=== PATIENT | male | born 1960 | race Caucasian/White ===

== ENCOUNTER 2019-06-02 08:21 | Emergency (ER) | payer OTHER ==
[~2019-06-02] VITALS: Ht 180.3 cm; Wt 79.4 kg
--- NOTE | 2019-06-02 08:30 | NUR ---
Patient to ER bed 8 to gown for evaluation. Side rails up. Report given to William RUSSO
[2019-06-02 08:32] VITALS: BP_SYST 144
--- NOTE | 2019-06-02 08:40 | NUR ---
flu swab collected and sent to the lab
--- NOTE | 2019-06-02 08:40 | NUR ---
Pt came to ER for N/V and cough. Pt not currently experiencing N/V and is resting in bed comfortably on color television console monitor VSS.
[2019-06-02] MEDS ORDERED: NACL 0.9% 1,000 ML IV ONE ×2 (08:45→09:45)
[2019-06-02] MEDS ORDERED: IPRATROPIUM/ALBUTEROL SULFATE 3 ML AMPUL.NEB (DUONEB) INH ONE (08:45)
[2019-06-02 08:48] LABS: HEMOGLOBIN 13.6 g/dL (14.0-18.0); MONOCYTES # (AUTO) 0.6 K/uL (0.0-1.0); PLATELET COUNT (AUTO) 101 K/uL (130-430)
--- NOTE | 2019-06-02 08:50 | NUR ---
EVELIA Colon at bedside examining patient.
[2019-06-02 08:53] LABS: BASOPHILS # (AUTO) 0.1 K/uL (0.0-0.2); BASOPHILS % (AUTO) 0.6 % (0.0-2.0); HEMATOCRIT 40.1 % (36-54); LYMPHOCYTES # (AUTO) 0.7 K/uL (1.0-5.5); LYMPHOCYTES % (AUTO) 7.4 % (20.5-51.5); MEAN CORPUSCULAR HEMOGLOBIN 31 pg (27-31); MEAN CORPUSCULAR HGB CONC 34 % (32-36); MEAN CORPUSCULAR VOLUME 92 fL (79.0-98.0); MONOCYTES % (AUTO) 6.3 % (1.7-9.3); NEUTROPHILS # (AUTO) 8.1 K/uL (1.8-7.7); NEUTROPHILS % (AUTO) 85.7 % (40.0-70.0); RED BLOOD CELL COUNT(AUTO) 4.35 MIL/uL (4.2-6.2); WHITE BLOOD COUNT (AUTO) 9.4 K/uL (4.8-10.8)
--- NOTE | 2019-06-02 09:00 | NUR ---
20 gauge angiocath placed to R AC. Use of asceptic technique. Opsite placed over site. Blood return noted. Blood for lab drawn from site. Flushed with 10 cc of normal saline. No evidence of infiltration noted. Patient tolerated well.
[2019-06-02 09:09] LABS: CALCIUM 8.9 mg/dL (8.4-11.0); CREATININE 2.55 mg/dL (0.55-1.30); POTASSIUM 4.2 mmol/L (3.5-5.1)
--- NOTE | 2019-06-02 09:10 | NUR ---
Patient transported to radiology via gurney, accompanied by sujatha.
[2019-06-02 09:14] LABS: ALBUMIN 2.5 g/dL (3.4-4.8); TOTAL BILIRUBIN 1.6 mg/dL (0.0-1.0)
--- NOTE | 2019-06-02 09:18 | NUR ---
Pt returned from radiology via [facility] on monitor car operator
[2019-06-02] MEDS ORDERED: INSULIN REGULAR, HUMAN 10 UNITS/0.1 ML INJ IVP ONE (09:30)
--- NOTE | 2019-06-02 09:45 | NUR ---
Administered Insulin 8 units IVP, Glucose 393. Pt tolerated well, will monitor
[2019-06-02] MEDS ORDERED: OSELTAMIVIR PHOSPHATE 75 MG CAPSULE PO ONE (10:00)
[2019-06-02 10:40] VITALS: BP_SYST 141
--- NOTE | 2019-06-02 10:40 | NUR ---
Patient given written and verbal discharge instructions and verbalizes understanding. ER MD discussed with patient the results and treatment provided. Patient in stable condition. ID arm band removed. IV catheter removed intact and dressing applied, no active bleeding. Rx of Tamiflu given. Patient educated on pain management and to follow up with PMD. Pain Scale 0. Opportunity for questions provided and answered. Medication side effect fact sheet provided.
== END 2019-06-02 08:50 | disposition home or self-care (01) ==
LOC: SED 08:21
DX: J10.1 Influenza due to other identified influenza virus with other respiratory manifestations (principal); E87.1 Hypo-osmolality and hyponatremia; R73.9 Hyperglycemia, unspecified; N18.9 Chronic kidney disease, unspecified; R11.10 Vomiting, unspecified; Z88.5 Allergy status to narcotic agent
CPT/HCPCS: 36415; 71046; 80053; 82962; 85025; 86710; 96361; 96374; 99284; G9035; J1815; J7030; J7620

== ENCOUNTER 2019-08-18 16:45 | Emergency (ER) | payer OTHER ==
[~2019-08-18] VITALS: Ht 180.3 cm; Wt 83.9 kg
[2019-08-18 16:45] VITALS: BP_SYST 138
[2019-08-18] MEDS ORDERED: NS 500 ML IV ONE (18:15)
[2019-08-18 18:38] LABS: BASOPHILS % (AUTO) 0.8 % (0.0-2.0); EOSINOPHILS # (AUTO) 0.1 K/uL (0.0-0.4); EOSINOPHILS % (AUTO) 1.7 % (0.0-4.0); HEMATOCRIT 37.4 % (36-54); HEMOGLOBIN 12.6 g/dL (14.0-18.0); LYMPHOCYTES # (AUTO) 0.2 K/uL (1.0-5.5); LYMPHOCYTES % (AUTO) 4.2 % (20.5-51.5); MEAN CORPUSCULAR HEMOGLOBIN 31 pg (27-31); MEAN CORPUSCULAR HGB CONC 34 % (32-36); MEAN CORPUSCULAR VOLUME 93 fL (79.0-98.0); MONOCYTES # (AUTO) 0.3 K/uL (0.0-1.0); MONOCYTES % (AUTO) 6.2 % (1.7-9.3); NEUTROPHILS # (AUTO) 4.5 K/uL (1.8-7.7); NEUTROPHILS % (AUTO) 87.1 % (40.0-70.0); PLATELET COUNT (AUTO) 103 K/uL (130-430); RED CELL DISTRIBUTION WIDTH 14.9 % (9.0-15.0); WHITE BLOOD COUNT (AUTO) 5.2 K/uL (4.8-10.8)
[2019-08-18 18:55] LABS: CALCIUM 8.7 mg/dL (8.4-11.0); CREATININE 2.45 mg/dL (0.55-1.30); POTASSIUM 3.7 mmol/L (3.5-5.1)
[2019-08-18 18:56] LABS: PROTHROMBIN TIME 10.4 SECS (9.5-12.5)
[2019-08-18 19:00] LABS: ALBUMIN 2.6 g/dL (3.4-4.8); TOTAL BILIRUBIN 1.3 mg/dL (0.0-1.0)
[2019-08-18 20:57] VITALS: BP_SYST 147
== END 2019-08-18 20:57 | disposition home or self-care (01) ==
LOC: SED 16:45
DX: I12.9 Hypertensive chronic kidney disease with stage 1 through stage 4 chronic kidney disease, or unspecified chronic kidney disease (principal); E11.22 Type 2 diabetes mellitus with diabetic chronic kidney disease; N18.9 Chronic kidney disease, unspecified; C22.0 Liver cell carcinoma; J02.9 Acute pharyngitis, unspecified; R11.0 Nausea; Z88.6 Allergy status to analgesic agent
CPT/HCPCS: 36415; 70490; 71045; 80053; 83605; 84484; 85025; 85610; 85730; 86308; 87040; 93005; 99285; J7030

== ENCOUNTER 2019-10-04 12:00 | Emergency (ER) | payer OTHER ==
[~2019-10-04] VITALS: Ht 180.3 cm; Wt 76.7 kg
--- NOTE | 2019-10-04 12:00 | NUR ---
PATIENT TO ER #2 WITH MARKET INVESTIGATOR, SAO2, ABP
--- NOTE | 2019-10-04 12:10 | NUR ---
pt arrives from w/ c/o feeling weak. Pt had liver resection sx on September 12. Pt is awake and alert. property assessment monitor placed. Will continue to monitor
[2019-10-04 12:27] VITALS: BP_SYST 113
--- NOTE | 2019-10-04 12:39 | NUR ---
ER at bedside examining patient.
[2019-10-04] MEDS ORDERED: GLIP10TA21 PO (12:42)
[2019-10-04] MEDS ORDERED: LOVA20TA PO (12:42)
[2019-10-04] MEDS ORDERED: INSU100V SUBQ (12:42)
[2019-10-04] MEDS ORDERED: PROP10TA10 PO (12:42)
[2019-10-04] MEDS ORDERED: AMLO5TAB4 PO (12:42)
[2019-10-04] MEDS ORDERED: NACL 0.9% 1,000 ML IV ONE (12:43)
--- NOTE | 2019-10-04 12:48 | NUR ---
# 20 gauge angiocath placed to RAC. Use of asceptic technique. Opsite placed over site. Blood return noted. Blood for lab drawn from site. Flushed with 10 cc of normal saline. No evidence of infiltration noted. Patient tolerated well.
--- NOTE | 2019-10-04 13:04 | NUR ---
Will of care received, pt A&Ox4, pt presents to ER for generalized weakness, pt states he had liver resection recently and feels weak, no N/V noted, temp 99.6, pt follows commands, cap refill <3, respirations even and unlabored.
[2019-10-04 13:23] LABS: BASOPHILS % (AUTO) 0.2 % (0.0-2.0); EOSINOPHILS # (AUTO) 0.2 K/uL (0.0-0.4); EOSINOPHILS % (AUTO) 1.5 % (0.0-4.0); HEMATOCRIT 31.7 % (36-54); HEMOGLOBIN 10.5 g/dL (14.0-18.0); LYMPHOCYTES # (AUTO) 0.2 K/uL (1.0-5.5); LYMPHOCYTES % (AUTO) 1.2 % (20.5-51.5); MEAN CORPUSCULAR HEMOGLOBIN 31 pg (27-31); MEAN CORPUSCULAR HGB CONC 33 % (32-36); MEAN CORPUSCULAR VOLUME 92 fL (79.0-98.0); MONOCYTES # (AUTO) 0.5 K/uL (0.0-1.0); MONOCYTES % (AUTO) 4.1 % (1.7-9.3); NEUTROPHILS # (AUTO) 11.9 K/uL (1.8-7.7); PLATELET COUNT (AUTO) 139 K/uL (130-430); RED BLOOD CELL COUNT(AUTO) 3.43 MIL/uL (4.2-6.2); RED CELL DISTRIBUTION WIDTH 14.7 % (9.0-15.0); WHITE BLOOD COUNT (AUTO) 12.8 K/uL (4.8-10.8)
[2019-10-04 13:39] LABS: ANION GAP 16 (5-15); CHLORIDE 103 mmol/L (98-107); CREATININE 3.49 mg/dL (0.55-1.30); GLUCOSE 165 mg/dL (70-99); POTASSIUM 3.3 mmol/L (3.5-5.1); SODIUM SERUM 136 mmol/L (136-145); UREA NITROGEN, BLOOD 56 mg/dL (8-21)
[2019-10-04 13:47] LABS: ALANINE AMINOTRANSFERASE 39 U/L (12-78); ASPARTATE AMINOTRANSFERASE 50 U/L (10-37); GFR AFRICAN AMERICAN 23 mL/min (>90); LIPASE 115 U/L (73-393); TOTAL BILIRUBIN 1.8 mg/dL (0.0-1.0)
--- NOTE | 2019-10-04 14:40 | NUR ---
pt removed is IV. Inserted IV 22g to the LAC. Patent and infusing well
[2019-10-04 14:45] VITALS: BP_SYST 120
== END 2019-10-04 14:47 | disposition home or self-care (01) ==
LOC: SED 12:00
DX: N17.9 Acute kidney failure, unspecified (principal); E86.0 Dehydration; I10 Essential (primary) hypertension; E11.29 Type 2 diabetes mellitus with other diabetic kidney complication; Z79.899 Other long term (current) drug therapy; Z79.4 Long term (current) use of insulin; Z90.49 Acquired absence of other specified parts of digestive tract; Z88.6 Allergy status to analgesic agent
CPT/HCPCS: 36415; 71045; 80053; 83690; 84484; 85025; 96360; 99284; J7030

== ENCOUNTER 2019-10-07 14:30 | Inpatient (IN) | payer OTHER, SELFPAY ==
[~2019-10-07] VITALS: Ht 170.2 cm; Wt 85.7 kg
--- NOTE | 2019-10-07 00:30 | NUR ---
Dr Seay at patient bedside. Addendum: 10/08/19 at 0835 by Sailaja Barfield RN *brianda dumont
[~2019-10-07 14:30] MED LIST: AMLO5TAB4 PO; GLIP10TA21 PO; INSU100V SUBQ; LOVA20TA PO; PROP10TA10 PO
[2019-10-07 14:35] VITALS: BP_SYST 104
--- NOTE | 2019-10-07 14:35 | NUR ---
Placed in room 3 . Placed on manager cardiac, blood pressure machine and pulse oximeter. To gown for exam. Side rails up. Report given to KARAN Rene.
--- NOTE | 2019-10-07 14:36 | NUR ---
Patient presented to ER C/O SOB. Patient A&Ox4, arrived to ER via wheelchair, patient pale and cold, temp 96.0, denies pain, denies N/V/D, large abdominal incision well healed with cathy in place & dry,. Patient states he had surgery at [facility] 09/13/2019. 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
[2019-10-07] MEDS ORDERED: NACL 0.9% 1,000 ML IV ONE ×2 (14:42→20:30)
[2019-10-07] MEDS ORDERED: MIDO10TA PO (15:10)
--- NOTE | 2019-10-07 15:17 | NUR ---
Patient taken to CT scan via gurney. Escorted by Lesley solares. Patient is transported on portable oxygen, IVF. Patient calm and cooperative, weakness. Will continue to follow up upon return.
[2019-10-07 15:18] LABS: HEMATOCRIT 33.2 % (36-54); HEMOGLOBIN 10.8 g/dL (14.0-18.0); MEAN CORPUSCULAR HEMOGLOBIN 30 pg (27-31); MEAN CORPUSCULAR HGB CONC 33 % (32-36); MEAN CORPUSCULAR VOLUME 93 fL (79.0-98.0); PLATELET COUNT (AUTO) 130 K/uL (130-430); RED BLOOD CELL COUNT(AUTO) 3.57 MIL/uL (4.2-6.2); WHITE BLOOD COUNT (AUTO) 13.6 K/uL (4.8-10.8)
[2019-10-07 15:29] LABS: INR 1.9 (0.80-1.20); PROTHROMBIN TIME 19.2 SECS (9.5-12.5)
[2019-10-07 15:32] LABS: ALBUMIN 1.6 g/dL (3.4-4.8); CALCIUM 7.7 mg/dL (8.4-11.0); CREATININE 5.48 mg/dL (0.55-1.30); POTASSIUM 3.8 mmol/L (3.5-5.1); TOTAL BILIRUBIN 2.9 mg/dL (0.0-1.0)
--- NOTE | 2019-10-07 15:35 | NUR ---
Rectal temp 93.5, made DR. CROWDER AWARE. MORE WARM BLANKET REPLACED ON PATIENT.
[2019-10-07 15:42] LABS: BAND % (MANUAL) 10 % (0-6); BASOPHILS % (MANUAL) 0 % (0-2); EOSINOPHILS % (MANUAL) 2 % (0-7); LYMPHOCYTES % (MANUAL) 1 % (20-46); MONOCYTES % (MANUAL) 2 % (0-11)
[2019-10-07] MEDS ORDERED: DEXTROSE 50% JECT 50 ML DISP.SYRIN IVP ONE (15:45)
[2019-10-07] MEDS ORDERED: DEXTROSE 50% JECT 50 ML DISP.SYRIN ONE (15:58)
[2019-10-07 16:09] LABS: CKMB RELATIVE INDEX 4.8 (0.0-2.9); CREATINE KINASE MB 19.8 ng/mL (0-3.6)
--- NOTE | 2019-10-07 16:10 | NUR ---
Tempature re-check 94.8, ppatient A&Ox4, verbal responses, denies pain.
--- NOTE | 2019-10-07 16:10 | NUR ---
ACCUCHECK RE-CHECK 101. MADE DR. CROWDER AWARE.
--- NOTE | 2019-10-07 17:00 | NUR ---
follow-up glucose 83, patient A&Ox4.
[2019-10-07 17:59] LABS: BILIRUBIN,URINE NEGATIVE (NEGATIVE); BLOOD, URINE NEGATIVE (NEGATIVE); CLARITY/URINE CLEAR (CLEAR); COLOR,URINE YELLOW (YELLOW); GLUCOSE,URINE NEGATIVE (NEGATIVE); KETONES,URINE NEGATIVE (NEGATIVE); LEUKOCYTE ESTERASE ,URINE TRACE (NEGATIVE); NITRITE, URINE NEGATIVE (NEGATIVE); PROTEIN URINE 1+ (NEGATIVE); UROBILINOGEN,URINE 0.2 (0.2-1.0)
[2019-10-07] MEDS ORDERED: NACL 0.9% 2,000 ML IV ONE (18:00)
[2019-10-07 18:07] LABS: BACTERIA,URINE FEW /HPF (None Seen); RBC,URINE NONE SEEN /HPF (0-3)
[2019-10-07 18:08] LABS: MUCUS,URINE None Seen /LPF (None Seen)
[2019-10-07] MEDS ORDERED: PIPERACILLIN/TAZO 3.375 GM in NS 50 ML IV ONE (18:30)
[2019-10-07] MEDS ORDERED: DEXAMETHASONE SOD PHOSPHATE 4 MG/ML VIAL IVP ONE (18:30)
--- NOTE | 2019-10-07 18:35 | NUR ---
Patient placed on Bairhugger. Rectal probe and disposable blanket obtained by powerhouse attendant Mila RUSSO.
[2019-10-07 19:04] LABS: FREE T4 (FREE THYROXINE) 0.7 ng/dL (0.6-1.6); THYROID STIMULATING HORMONE 0.8 uIu/mL (0.34-4.82)
--- NOTE | 2019-10-07 19:30 | NUR ---
Report received from KARAN Rene for continuation of care. patient is a&o x4 is complaining of shortness of breath. Patient is on 4L of O2 NC with an oxygen saturation at 94%. Patient is hooked up to bear hugger warmer with rectal probe inserted and a temp of 92.3.
[2019-10-07] MEDS ORDERED: PIPERACILLIN/TAZOBACTAM 3.375 GM/VIAL (ZOSYN) IV ONE (19:36)
--- NOTE | 2019-10-07 19:42 | NUR ---
Zosyn 3.375g in 50ml NS is running at 100mls/hr per MD order. 1L of NS bolus is running per MD order for a total of 3L of NS.
--- NOTE | 2019-10-07 19:52 | NUR ---
Blood sugar is 60. MD notified.
--- NOTE | 2019-10-07 20:00 | NUR ---
PATIENT UPGRADED TO ICU. SPOKE TO KARAN ROJO FOR BED PLACEMENT
--- NOTE | 2019-10-07 20:10 | NUR ---
# 16 FR Young catheter with use of sterile technique. Immediate return of 150 cc dark yellow urine with sediment noted. Bedside drainage bag placed below level of bladder. Pt tolerated procedure WELL.
[2019-10-07] MEDS ORDERED: ACETAMINOPHEN 325 MG TABLET PO PRN (20:15)
[2019-10-07] MEDS ORDERED: ONDANSETRON HCL 4 MG/2 ML VIAL IVP PRN (20:15)
--- NOTE | 2019-10-07 20:15 | NUR ---
Normal saline fluids infusing stopped and replaced with warmed 1L NS bolus per MD order for a total of 3L of NS fluids.
--- NOTE | 2019-10-07 20:25 | NUR ---
Spoke with Sarah to request ICU bed. Sarah said she would call back in an hour to assign a bed.
--- NOTE | 2019-10-07 20:34 | NUR ---
Per MD request, gave patient orange juice to drink for blood sugar.
--- NOTE | 2019-10-07 20:53 | NUR ---
RT at bedside completed ABG.
[2019-10-07] MEDS ORDERED: VANCOMYCIN HCL 1 GM/NS PREMIX 250 ML IV ONE (21:00)
--- NOTE | 2019-10-07 21:11 | NUR ---
Blood sugar is 45. MD notified.
[2019-10-07] MEDS: D5NS 1,000 ML IV SCH ×2 (21:30→23:59)
--- NOTE | 2019-10-07 21:35 | NUR ---
gave 4.2oz of orange per MD order. D5W @125mls/hr started per MD order.
--- NOTE | 2019-10-07 21:35 | NUR ---
Patients temperature is at 93.5. aware
--- NOTE | 2019-10-07 21:43 | NUR ---
COVID and MRSA sent to lab.
--- NOTE | 2019-10-07 21:45 | NUR ---
Patient will be admitted to care of [facility]. Admitted to ICU unit. Will go to room 8. Belongings list completed. Complete and up to date summary report printed. SBAR report to be given at bedside with opportunity for questions.
--- NOTE | 2019-10-07 21:49 | NUR ---
Medication reconciliation completed with information provided by Patient. Any prior medication reconciliation on file was reviewed and corrected.
--- NOTE | 2019-10-07 21:56 | NUR ---
Patient's code status is full code paperwork completed and placed in chart.
--- NOTE | 2019-10-07 21:59 | NUR ---
Transfer to ICU via ACLS protocol. Licensed nurse present. IV present no signs or symptoms of infiltration.
[2019-10-07 22:00] VITALS: BP_SYST 118
[2019-10-07] MEDS ORDERED: D5W 1,000 ML IV PRN (22:50)
[2019-10-07 23:00] VITALS: BP_SYST 114
[2019-10-07] MEDS ORDERED: ALBUTEROL SULFATE 0.083% 2.5 MG/3 ML VIAL.NEB INH SCH (23:00)
[2019-10-07] MEDS ORDERED: DEXTROSE 50% JECT 50 ML DISP.SYRIN IVP PRN (23:00)
[2019-10-07] MEDS ORDERED: GLUCOSE 15 GM GEL (in 37.5 GM TUBE) PO PRN (23:00)
--- NOTE | 2019-10-07 23:20 | NUR ---
notified Called Dr. Chan and provided report on patient.
--- NOTE | 2019-10-07 23:20 | NUR ---
PAGED DR. MEYER FOR ORDERS DIALED: [phone] SPOKE TO: AUTOMATED EXCHANGE
--- NOTE | 2019-10-07 23:35 | NUR ---
notified Called Dr. Seay. New orders received.
[2019-10-08] VITALS (13 sets, daily range): BP systolic 82–116
[2019-10-08] MEDS ORDERED: PIPERACILLIN/TAZO 3.375/DEX-IS 50 ML IV SCH
[2019-10-08] MEDS ORDERED: VANCOMYCIN HCL 1000 MG/VIAL IV ONE (00:03)
[2019-10-08] MEDS ORDERED: PIPERACILLIN/TAZOBACTAM 3.375 GM/VIAL (ZOSYN) IV ONE ×2 (00:03→00:08)
--- NOTE | 2019-10-08 00:30 | NUR ---
Dr Seay at bedside
[2019-10-08] MEDS ORDERED: SODIUM BICARBONATE 8.4% JECT 100 MEQ in D5W 1,000 ML IV SCH (01:00)
[2019-10-08] MEDS ORDERED: ALBUMIN HUMAN 5% 500 ML IV SCH (01:00)
--- NOTE | 2019-10-08 01:10 | NUR ---
Code Blue Record Called Code Blue on patient. Patient started to amita to asystole. CPR initiated. Code successful. Code ended at 0132.
--- NOTE | 2019-10-08 01:26 | NUR ---
PAGED DR. CHAVEZ FOR ORDERS DIALED: [phone] SPOKE TO: AUTOMATED EXCHANGE
[2019-10-08] MEDS ORDERED: hydrALAZINE HCL 20 MG/ML VIAL IVP ONE (01:45)
[2019-10-08] MEDS ORDERED: hydrALAZINE HCL 20 MG/ML VIAL ONE (01:46)
[2019-10-08 02:14] LABS: INR 2.5 (0.80-1.20); PROTHROMBIN TIME 24.5 SECS (9.5-12.5)
[2019-10-08 02:17] LABS: CREATININE 5.41 mg/dL (0.55-1.30)
[2019-10-08 02:19] LABS: EOSINOPHILS # (AUTO) 0.5 K/uL (0.0-0.4); MEAN CORPUSCULAR VOLUME 97 fL (79.0-98.0)
[2019-10-08 02:21] LABS: HEMATOCRIT 30.6 % (36-54); HEMOGLOBIN 9.9 g/dL (14.0-18.0); LYMPHOCYTES % (AUTO) 1.2 % (20.5-51.5); MEAN CORPUSCULAR HEMOGLOBIN 31 pg (27-31); MEAN CORPUSCULAR HGB CONC 32 % (32-36); NEUTROPHILS % (AUTO) 95.3 % (40.0-70.0); PLATELET COUNT (AUTO) 117 K/uL (130-430); RED BLOOD CELL COUNT(AUTO) 3.16 MIL/uL (4.2-6.2); RED CELL DISTRIBUTION WIDTH 15.8 % (9.0-15.0); WHITE BLOOD COUNT (AUTO) 17.5 K/uL (4.8-10.8)
[2019-10-08 02:22] LABS: BASOPHILS % (AUTO) 0.2 % (0.0-2.0); EOSINOPHILS % (AUTO) 2.6 % (0.0-4.0); LYMPHOCYTES # (AUTO) 0.2 K/uL (1.0-5.5); MONOCYTES # (AUTO) 0.1 K/uL (0.0-1.0); MONOCYTES % (AUTO) 0.5 % (1.7-9.3); NEUTROPHILS # (AUTO) 16.7 K/uL (1.8-7.7)
[2019-10-08 02:24] LABS: ALBUMIN 1.4 g/dL (3.4-4.8); TOTAL BILIRUBIN 3.1 mg/dL (0.0-1.0)
--- NOTE | 2019-10-08 03:30 | NUR ---
patient is intubated.
[2019-10-08] MEDS ORDERED: SODIUM BICARBONATE 8.4% JECT 50 MEQ/50 ML SYRINGE ONE ×2 (05:36→06:14)
--- NOTE | 2019-10-08 05:45 | NUR ---
PAGED DR. MEYER FOR ORDERS DIALED: [phone] SPOKE TO: AUTOMATED EXCHANGE
--- NOTE | 2019-10-08 05:50 | NUR ---
DR MITCH Chan notified regarding 0430 ABG, orders received. 1.Give 2amps Bicarb IVP X1 2.Albumin 25% 100ml X1
--- NOTE | 2019-10-08 05:52 | NUR ---
PAGED FOR CONSULT DR. LAUGHLIN REASON FOR CONSULT: POOR KIDNEY FUNCTION DIALED: [phone] SPOKE TO: CUCA
--- NOTE | 2019-10-08 05:53 | NUR ---
PAGED FOR CONSULT DR. LE REASON FOR CONSULT: CIRRHOSIS OF THE LIVER DIALED: [phone] SPOKE TO: CUCA
[2019-10-08] MEDS ORDERED: ALBUMIN HUMAN 25% 100 ML IV ONE (06:00)
[2019-10-08] MEDS ORDERED: SODIUM BICARBONATE 8.4% JECT 50 MEQ/50 ML SYRINGE IVP ONE (06:00)
[2019-10-08 06:34] LABS: BASOPHILS # (AUTO) 0.1 K/uL (0.0-0.2); HEMOGLOBIN 9.8 g/dL (14.0-18.0); MONOCYTES # (AUTO) 0.4 K/uL (0.0-1.0); PLATELET COUNT (AUTO) 125 K/uL (130-430)
[2019-10-08 06:47] LABS: BASOPHILS % (AUTO) 0.6 % (0.0-2.0); EOSINOPHILS # (AUTO) 0.9 K/uL (0.0-0.4); EOSINOPHILS % (AUTO) 3.9 % (0.0-4.0); HEMATOCRIT 31.8 % (36-54); LYMPHOCYTES # (AUTO) 0.6 K/uL (1.0-5.5); LYMPHOCYTES % (AUTO) 2.5 % (20.5-51.5); MEAN CORPUSCULAR HEMOGLOBIN 31 pg (27-31); MEAN CORPUSCULAR HGB CONC 31 % (32-36); MEAN CORPUSCULAR VOLUME 101 fL (79.0-98.0); MONOCYTES % (AUTO) 1.7 % (1.7-9.3); NEUTROPHILS # (AUTO) 20.4 K/uL (1.8-7.7); RED BLOOD CELL COUNT(AUTO) 3.15 MIL/uL (4.2-6.2); RED CELL DISTRIBUTION WIDTH 16.6 % (9.0-15.0); WHITE BLOOD COUNT (AUTO) 22.3 K/uL (4.8-10.8)
--- NOTE | 2019-10-08 06:50 | NUR ---
CHANGE IN CONDITION Unable to palpate pulse, code called. Pulse came back, ER Dr. Fowler ordered Levophed 5mcg/min. SBP in the 80s.
--- NOTE | 2019-10-08 06:50 | NUR ---
RT NOTES Responded to code blue, per RN Sarah and Planting Material Unloader Oscar, pt has a pulse, just weak. EKG done per Dr Fowler's order.
--- NOTE | 2019-10-08 07:00 | NUR ---
END OF SHIFT Report given to dayshift.
[2019-10-08 07:04] LABS: NEUTROPHILS % (AUTO) 91.3 % (40.0-70.0)
[2019-10-08] MEDS ORDERED: NOREPINEPHRINE 4 MG/4 ML VIAL IV ONE ×2 (07:05→08:55)
[2019-10-08] MEDS ORDERED: PANTOPRAZOLE SODIUM 40 MG in NS 50 ML IV SCH (07:15)
--- NOTE | 2019-10-08 07:15 | NUR ---
RN Opening note Received SBAR report from endorsing nurse, post second code blue. Pt unresponsive to all stimulus, pupils fixed and dialated. BP is being maintained by levophed. Dr. Gramajo notified of status and critical values.
--- NOTE | 2019-10-08 07:30 | NUR ---
Closing Note Endorsed report to AM nurse using SBAR approach.
[2019-10-08] MEDS ORDERED: NOREPINEPHRINE BITARTRATE 4 MG in D5W 246 ML IV PRN ×5 (07:45→08:00)
--- NOTE | 2019-10-08 07:52 | NUR ---
CONSULT NEPHRO. CONSULTING MD: DR. PEDERSON (DR. COELHO CLINICAL APPEALS SPECIALIST) DIALED: [phone] SPOKE TO: SHAWNA ORDERED BY: DR. RATLIFF
[2019-10-08 08:06] LABS: POTASSIUM 5.6 mmol/L (3.5-5.1)
[2019-10-08 08:10] LABS: CALCIUM 7.1 mg/dL (8.4-11.0); CREATININE 5.5 mg/dL (0.55-1.30); TOTAL BILIRUBIN 2.6 mg/dL (0.0-1.0)
[2019-10-08 08:11] LABS: ALBUMIN 1.3 g/dL (3.4-4.8)
--- NOTE | 2019-10-08 08:31 | NUR ---
Miguel vincent Pt's vitals became critical, Miguel vincent initiated, Dr. Gramajo at bedside running code. see miguel vincent record sheet
--- NOTE | 2019-10-08 08:31 | NUR ---
RT NOTES Responded to code blue, CPR in progress. Per policy, during code kept pt on vent, changed to rate of 10. ROSC @0840. ABG drawn per dr rogers's order. @0850 vent settings to AC 30 550. Pt code status DNR now, per Dr Rogers. Will monitor pt.
--- NOTE | 2019-10-08 08:45 | NUR ---
Pt changed to DNR per Dr. Gramajo, who spoke directly with PT's over the telephone.
--- NOTE | 2019-10-08 09:02 | NUR ---
Nutrition Update Bandar Scale 9 noted. Pt admitted for sepsis. Diet: Clear Liquid Diet BMI: 29.6 kg/m2 RD to follow per nutrition care standards.
[2019-10-08] MEDS ORDERED: LORazepam 2 MG/ML VIAL ONE (09:16)
[2019-10-08] MEDS ORDERED: SUCCINYLCHOLINE CHLORIDE 20 MG/ML(QUELICIN) IVP ONE (09:57)
[2019-10-08] MEDS ORDERED: ETOMIDATE 20 MG/ 10 ML VIAL (AMIDATE) IVP ONE (09:57)
--- NOTE | 2019-10-08 10:28 | NUR ---
Time of : 1027 confirmed by two nurses at bedside: Diamond Chery and Pedrito Bob
--- NOTE | 2019-10-08 10:36 | NUR ---
INFORMED MD'S PATINET DR. RATLIFF SPOKE TO REG DIALED [phone] DR. POOLE (DR. GAN NON LICENSED NUCLEAR EQUIPMENT OPERATOR) SPOKE TO SHAWNA DIALED [phone] DR. PEDERSON ( DR. COELHO NON LICENSED NUCLEAR EQUIPMENT OPERATOR) SPOKE TO SHAWNA DIALED [phone] DR. IBARRA PAGED [phone]
--- NOTE | 2019-10-08 14:00 | NUR ---
Pt transported to [facility]
--- NOTE | 2019-10-10 10:23 | NUR ---
Witnessed PEA on monitor. Miguel vincent called and Dr. Gramajo at bedside. CPR started. See Miguel Vincent record. Miguel vincent stopped by Dr. Gramajo at 1028.
== END 2019-10-08 10:28 | disposition expired | DRG 871 ==
LOC: SED 14:30 → STU 18:36 → EEVIPCON 18:36 → SIC 21:49
PROVIDERS: ADMIT Internal Medicine Hospice and Palliative Medicine; ATTEND Internal Medicine Hospice and Palliative Medicine
PROC: 3E0A3GC Introduction of Other Therapeutic Substance into Bone Marrow, Percutaneous Approach (ICD-10-PCS; principal; 2019-10-08)
PROC: 5A12012 Performance of Cardiac Output, Single, Manual (ICD-10-PCS; 2019-10-08)
PROC: 5A1935Z Respiratory Ventilation, Less than 24 Consecutive Hours (ICD-10-PCS; 2019-10-08)
PROC: 0BH17EZ Insertion of Endotracheal Airway into Trachea, Via Natural or Artificial Opening (ICD-10-PCS; 2019-10-08)
DX: A41.9 Sepsis, unspecified organism (principal); J96.01 Acute respiratory failure with hypoxia; D68.9 Coagulation defect, unspecified; E87.1 Hypo-osmolality and hyponatremia; E87.2 Acidosis; N17.9 Acute kidney failure, unspecified; N39.0 Urinary tract infection, site not specified; R18.8 Other ascites; G93.40 Encephalopathy, unspecified; D64.9 Anemia, unspecified; E11.22 Type 2 diabetes mellitus with diabetic chronic kidney disease; E11.649 Type 2 diabetes mellitus with hypoglycemia without coma; E86.0 Dehydration; I12.9 Hypertensive chronic kidney disease with stage 1 through stage 4 chronic kidney disease, or unspecified chronic kidney disease; K72.90 Hepatic failure, unspecified without coma; K74.60 Unspecified cirrhosis of liver; N18.9 Chronic kidney disease, unspecified; I95.9 Hypotension, unspecified; R65.20 Severe sepsis without septic shock; R68.0 Hypothermia, not associated with low environmental temperature; Z20.828 Contact with and (suspected) exposure to other viral communicable diseases; I46.9 Cardiac arrest, cause unspecified; Z85.05 Personal history of malignant neoplasm of liver; Z79.899 Other long term (current) drug therapy; Z88.5 Allergy status to narcotic agent; Z90.49 Acquired absence of other specified parts of digestive tract
CPT/HCPCS: 36415; 36600; 71045; 80053; 81000-TC; 82150-TC; 82550-TC; 82553-TC; 82728; 82803-TC; 82962; 83605; 83690-TC; 83880; 84439; 84443-TC; 84479; 84484; 85007; 85025; 85027; 85379; 85610-TC; 85730-TC; 87040-TC; 87081; 87186-TC; 93005; 94003; 96361; 96365; 96375; 99291; C9113; J0330; J0360; J1100; J2060; J2543; J3370; J3490; J7030; J7042; J7050; J7060; J7613; P9041; P9046; U0003-CS